=== PATIENT | male | born 1990 | race American Indian/Alaskan Native ===

== ENCOUNTER 2018-05-24 01:59 | Emergency (ER) | payer OTHER ==
[2018-05-24 02:14] VITALS: BP 154/89; PULSE 87; RESP 20; TEMP 98.1; O2SAT 99
--- NOTE | 2018-05-24 02:46 | C.PDOC ---
History Of Present Illness 27 y/o male presents to the ED complaining of low back pain for 2 days. Patient states his bed was broken and he was still sleeping on it. Pt states he has has been feeling the pain since. Pain is radiating into his left groin. Otherwise he denies any fevers, numbness, weakness, incontinence, or UTI symptoms. No blunt trauma or fall. Time Seen by Provider: 05/24/18 02:15 Chief Complaint (Nursing): Back Pain History Per: Patient History/Exam Limitations: no limitations Onset/Duration Of Symptoms: Days (x 2) Current Symptoms Are (Timing): Still Present Associated Symptoms: None Past Medical History Reviewed: Historical Data, Nursing Documentation, Vital Signs Vital Signs: Last Vital Signs Temp 98.1 F 05/24/18 02:14 Pulse 87 05/24/18 02:14 Resp 20 05/24/18 02:14 BP 154/89 H 05/24/18 02:14 Pulse Ox 99 05/24/18 02:14 - Medical History Other PMH: Glaucoma Other Surgeries: Eye surgery Family History: States: Unknown Family Hx - Social History Hx Alcohol Use: Yes Hx Substance Use: Yes - Immunization History Hx Tetanus Toxoid Vaccination: No Hx Influenza Vaccination: No Hx Pneumococcal Vaccination: No Review Of Systems Constitutional: Negative for: Fever Cardiovascular: Negative for: Chest Pain Respiratory: Negative for: Shortness of Breath Gastrointestinal: Negative for: Vomiting, Abdominal Pain Genitourinary: Negative for: Dysuria, Frequency, Incontinence, Hematuria Musculoskeletal: Positive for: Back Pain Neurological: Negative for: Weakness, Numbness, Incoordination Physical Exam - Physical Exam Appears: Non-toxic, No Acute Distress Skin: Warm, Dry Head: Atraumatic, Normacephalic Eye(s): bilateral: Normal Inspection Oral Mucosa: Moist Neck: Normal ROM Chest: Symmetrical Respiratory: No Accessory Muscle Use, Other (no respiratory distress) Back: No Vertebral Tenderness, Paraspinal Tenderness (Left paralumbar tenderness), No Straight Leg Raising Male Genital: Normal Inspection, No Inguinal Tenderness, No Inguinal Swelling, Other (No hernia) Extremity: Bilateral: Atraumatic, Normal Color And Temperature Neurological/Psych: Oriented x3, Normal Speech ED Course And Treatment O2 Sat by Pulse Oximetry: 99 (RA) Pulse Ox Interpretation: Normal Progress Note: Patient treated with 600 mg Motrin PO and 10 mg Flexeril PO. On reevaluation patient is resting comfortably and reports improvement. Plan is to discharge patient home with rx for the same. Advised to follow up with PMD. Disposition Counseled Patient/Family Regarding: Diagnosis, Need For Followup, Rx Given - Disposition Referrals: [facility] [Outside] Disposition: HOME/ ROUTINE Disposition Time: 02:43 Condition: STABLE Additional Instructions: Please follow up with PMD or in clinic Take medications as directed Return to ER if worse Prescriptions: Cyclobenzaprine [Cyclobenzaprine HCl] 10 mg PO HS #10 tab Ibuprofen [Motrin] 600 mg PO Q6H #20 tab Instructions: Lumbar Muscle Strain Forms: [employer] ([place]) - Clinical Impression Clinical Impression: Low back strain - 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 - Scribe Statement The provider has reviewed the documentation as recorded by the Scribyousif Mckeon All medical record entries made by the Joaquinaibyousif were at my direction and personally dictated by me. I have reviewed the chart and agree that the record accurately reflects my personal performance of the history, physical exam, medical decision making, and the department course for this patient. I have also personally directed, reviewed, and agree with the discharge instructions and disposition.
== END 2018-05-24 03:00 | disposition home or self-care (01) ==
LOC: C.ER 01:59
DX: S39.012A Strain of muscle, fascia and tendon of lower back, initial encounter (principal); X58.XXXA Exposure to other specified factors, initial encounter

== ENCOUNTER 2018-05-25 14:57 | Emergency (ER) | payer OTHER ==
[2018-05-25 15:20] VITALS: BP 121/70; TEMP 98.2
[2018-05-25 15:27] VITALS: PULSE 92; RESP 18; O2SAT 100
--- NOTE | 2018-05-25 15:38 | C.PDOC ---
History Of Present Illness 27 y/o male presents to the ED complaining of persistent left back pain radiating into the left groin for 3 days. Pain is intermittent, not associated with position or movement. He was seen here on 05/23, diagnosed with a muscle spasm, and sent home with flexeril and nsaid RX. Saw PMD today for same complaint, patient states urine was taken but does not know results. Patient was given an unknown antibiotic, states he does not know why. Otherwise he denies any nausea, vomiting, fever, or chills. Time Seen by Provider: 05/25/18 15:31 Chief Complaint (Nursing): Back Pain History Per: Patient History/Exam Limitations: no limitations Onset/Duration Of Symptoms: Days Current Symptoms Are (Timing): Still Present Quality Of Discomfort: "Pain" Associated Symptoms: None Past Medical History Reviewed: Historical Data, Nursing Documentation, Vital Signs Vital Signs: Last Vital Signs Temp 98.2 F 05/25/18 15:12 Pulse 92 H 05/25/18 15:26 Resp 18 05/25/18 15:26 BP 121/70 05/25/18 15:12 Pulse Ox 100 05/25/18 15:26 Family History: States: Unknown Family Hx - Social History Hx Tobacco Use: Yes (Former) Hx Alcohol Use: No Hx Substance Use: Yes - Immunization History Hx Tetanus Toxoid Vaccination: No Hx Influenza Vaccination: No Hx Pneumococcal Vaccination: No Review Of Systems Except As Marked, All Systems Reviewed And Found Negative. Constitutional: Negative for: Fever, Chills Gastrointestinal: Negative for: Nausea, Vomiting, Diarrhea Genitourinary: Negative for: Dysuria, Frequency, Hematuria, Penile Discharge Musculoskeletal: Positive for: Back Pain (left back, radiating to left groin). Negative for: Leg Pain Skin: Negative for: Rash, Lesions Neurological: Negative for: Weakness, Numbness Physical Exam - Physical Exam Appears: Non-toxic, No Acute Distress Skin: Normal Color, Warm, Dry Head: Atraumatic, Normacephalic Eye(s): bilateral: Normal Inspection, PERRL, EOMI Oral Mucosa: Moist Neck: Normal ROM Chest: Symmetrical Cardiovascular: Rhythm Regular, No Murmur Respiratory: Normal Breath Sounds, No Accessory Muscle Use, Other (NARD) Gastrointestinal/Abdominal: Soft, No Tenderness, No Distention, No Guarding Back: No CVA Tenderness, No Vertebral Tenderness, No Paraspinal Tenderness Extremity: Bilateral: Atraumatic, Normal Color And Temperature Pulses: Left Dorsalis Pedis: Normal, Right Dorsalis Pedis: Normal Neurological/Psych: Oriented x3, Normal Speech, Other (No focal deficits) ED Course And Treatment O2 Sat by Pulse Oximetry: 100 (RA) Pulse Ox Interpretation: Normal - CT Scan/US CT Abd/Pelvis Other Rad Studies (CT/US): Read By Radiologist, Radiology Report Reviewed CT/US Interpretation: Accession No. : [id number]. Patient Name / ID : ANNA MARIE BELLE / [id number]. Exam Date : 05/25/2018 16:00:54 ( Approved ). Study Comment : Sex / Age : M / 27Y. Creator : Eloisa Jacobs. Dictator : Deirdre De La Cruz MD. Banquet Steward : Controls Engineer : Deirdre De La Cruz MD. Approver2 : Report Date : 05/25/2018 16:13:38. My Comment : . PROCEDURE: CT Abdomen and Pelvis without Oral or IV contrast. HISTORY: L BACK/GROIN PAIN. COMPARISON: None available. TECHNIQUE: Contiguous axial images of the abdomen and pelvis. No oral or IV contrast administered. Coronal and Sagittal reformats generated and reviewed. Radiation dose: Total exam DLP = 986.61 mGy-cm. This CT exam was performed using one or more of the following dose reduction techniques: Automated exposure control, adjustment of the mA and/or kV according to patient size, and/or use of iterative reconstruction technique. FINDINGS: There is limited evaluation of the solid organs without the administration of IV contrast. LOWER THORAX: No visible consolidation, pleural effusion, or pneumothorax. LIVER: Unremarkable unenhanced appearance. GALLBLADDER AND BILE DUCTS: Unremarkable unenhanced appearance. PANCREAS: Unremarkable unenhanced appearance. SPLEEN: 8 mm and 7 mm probable splenules. Otherwise unremarkable. ADRENALS: Unremarkable unenhanced appearance. KIDNEYS AND URETERS: Punctate nonobstructing right renal calculi. Punctate left lower pole renal calculus, nonobstructing. No hydronephrosis or obstructing renal calculus. BLADDER: Decompressed urinary bladder limits evaluation. REPRODUCTIVE: Unremarkable. APPENDIX: The appendix appears within normal limits of caliber. No secondary signs of acute appendicitis. BOWEL: The stomach is nondistended. Lack of oral contrast limits evaluation for bowel pathology. The bowel loops appear within normal limits of caliber without evidence of intestinal obstruction. PERITONEUM: No significant free fluid. No definite free air. LYMPH NODES: Bilateral inguinal lymph nodes, nonspecific. VASCULATURE: No significant atherosclerotic calcifications identified. No aortic aneurysm. BONES: No acute osseous abnormality is detected. OTHER FINDINGS: None. IMPRESSION: Moderate diffuse constipation. Nonobstructing right renal calculi. Punctate nonobstructing left lower pole renal calculus. Thick-walled under distended urinary bladder. Recommend correlation with urinalysis. Additional incidental findings as above. Progress - Data Reviewed Data Reviewed: Lab, Diagnostic imaging, Old records Medical Decision Making Medical Decision Making: Impression: Left back pain, Left groin pain Plan: - Urinalysis - Urine culture - CT Abdomen/Pelvis CT findings discussed with patient. UA is clear. Patient will be discharged home, advised to take meds as prescribed. Disposition Counseled Patient/Family Regarding: Studies Performed, Diagnosis, Need For Followup, Rx Given - Disposition Referrals: YOUR,PMD [Other] Disposition: HOME/ ROUTINE Disposition Time: 16:39 Condition: GOOD Additional Instructions: TAKE MEDICATIONS PRESCRIBED. FOLLOW UP WITH YOUR PMD. Prescriptions: Magnesium Citrate [[facility] Magnesium Citrate] 300 ml PO ONCE #1 bottle Instructions: Constipation, Adult (DC), Low Back Pain (DC) Forms: [employer] ([place]an) - Clinical Impression Clinical Impression: Low back pain, Constipated - Scribe Statement The provider has reviewed the documentation as recorded by the Debi Mckeon Provider Attestation: All medical record entries made by the Debi were at my direction and personally dictated by me. I have reviewed the chart and agree that the record accurately reflects my personal performance of the history, physical exam, medical decision making, and the department course for this patient. I have also personally directed, reviewed, and agree with the discharge instructions and disposition.
[2018-05-25 16:14] LABS: SQUAMOUS EPITHIAL < 1 /hpf (0-5); URINE BILIRUBIN NEGATIVE (NEGATIVE); URINE BLOOD NEGATIVE (NEGATIVE); URINE CLARITY Clear (Clear); URINE COLOR Yellow (YELLOW); URINE GLUCOSE (UA) NORMAL (Normal); URINE LEUKOCYTE ESTERASE NEG Leu/uL (Negative); URINE PROTEIN NEGATIVE (NEGATIVE); URINE UROBILINOGEN NORMAL mg/dL (0.2-1.0)
--- NOTE | 2018-05-25 16:36 | CT ---
PROCEDURE: CT Abdomen and Pelvis without Oral or IV contrast. HISTORY: L BACK/GROIN PAIN COMPARISON: None available. TECHNIQUE: Contiguous axial images of the abdomen and pelvis. No oral or IV contrast administered. Coronal and Sagittal reformats generated and reviewed. Radiation dose: Total exam DLP = 986.61 mGy-cm. This CT exam was performed using one or more of the following dose reduction techniques: Automated exposure control, adjustment of the mA and/or kV according to patient size, and/or use of iterative reconstruction technique. FINDINGS: There is limited evaluation of the solid organs without the administration of IV contrast. LOWER THORAX: No visible consolidation, pleural effusion, or pneumothorax. LIVER: Unremarkable unenhanced appearance. GALLBLADDER AND BILE DUCTS: Unremarkable unenhanced appearance. PANCREAS: Unremarkable unenhanced appearance. SPLEEN: 8 mm and 7 mm probable splenules. Otherwise unremarkable. ADRENALS: Unremarkable unenhanced appearance. KIDNEYS AND URETERS: Punctate nonobstructing right renal calculi. Punctate left lower pole renal calculus, nonobstructing. No hydronephrosis or obstructing renal calculus. BLADDER: Decompressed urinary bladder limits evaluation. REPRODUCTIVE: Unremarkable. APPENDIX: The appendix appears within normal limits of caliber. No secondary signs of acute appendicitis. BOWEL: The stomach is nondistended. Lack of oral contrast limits evaluation for bowel pathology. The bowel loops appear within normal limits of caliber without evidence of intestinal obstruction. PERITONEUM: No significant free fluid. No definite free air. LYMPH NODES: Bilateral inguinal lymph nodes, nonspecific. VASCULATURE: No significant atherosclerotic calcifications identified. No aortic aneurysm. BONES: No acute osseous abnormality is detected. OTHER FINDINGS: None. IMPRESSION: Moderate diffuse constipation. Nonobstructing right renal calculi. Punctate nonobstructing left lower pole renal calculus. Thick-walled under distended urinary bladder. Recommend correlation with urinalysis. Additional incidental findings as above.
== END 2018-05-25 16:50 | disposition home or self-care (01) ==
LOC: C.ER 14:57
DX: K59.00 Constipation, unspecified (principal); M54.5 Low back pain; Z87.891 Personal history of nicotine dependence

== ENCOUNTER 2018-08-10 13:33 | Emergency (ER) | payer OTHER ==
[2018-08-10 14:23] VITALS: PULSE 80; RESP 18; TEMP 98.4; O2SAT 99
--- NOTE | 2018-08-10 15:09 | C.PDOC ---
History Of Present Illness 27 y/o male brought to ER by ambulance for evaluation of panic attack. Patient reports that he had panic attack which has resolved. Patient states that he was smoking marijuana "laced with some substance." He thinks that he might be having " heart attack." Denies having fever,chills, CP,SOB, nausea, vomiting, and abdominal pain. Time Seen by Provider: 08/10/18 15:04 Chief Complaint (Nursing): Substance Abuse History Per: Patient History/Exam Limitations: no limitations Past Medical History Reviewed: Historical Data, Nursing Documentation, Vital Signs Vital Signs: Last Vital Signs Temp 98.4 F 08/10/18 14:19 Pulse 80 08/10/18 14:19 Resp 18 08/10/18 14:19 BP Pulse Ox 99 08/10/18 14:19 - Medical History PMH: No Chronic Diseases Family History: States: No Known Family Hx - Social History Hx Tobacco Use: Yes (Former) Hx Alcohol Use: No Hx Substance Use: Yes (weed) - Immunization History Hx Tetanus Toxoid Vaccination: No Hx Influenza Vaccination: No Hx Pneumococcal Vaccination: No Review Of Systems Except As Marked, All Systems Reviewed And Found Negative. Constitutional: Negative for: Fever, Chills Gastrointestinal: Negative for: Nausea, Vomiting, Abdominal Pain Physical Exam - Physical Exam Appears: Non-toxic, No Acute Distress Skin: Normal Color, Warm, Dry Head: Atraumatic, Normacephalic Eye(s): bilateral: Other (strabismus medially, baseline per pt) Nose: Normal Oral Mucosa: Moist Neck: Supple Chest: Symmetrical Cardiovascular: Rhythm Regular Respiratory: Normal Breath Sounds, No Rales, No Rhonchi, No Wheezing Extremity: Normal ROM Pulses: Left Radial: Normal, Right Radial: Normal Neurological/Psych: Oriented x3, Normal Speech ED Course And Treatment ECG: Interpreted By Me, Viewed By Me ECG Rhythm: Sinus Rhythm Rate From EC O2 Sat by Pulse Oximetry: 99 (RA) Pulse Ox Interpretation: Normal Medical Decision Making Medical Decision Making: marijuana ? laced with PCP, panic attack normal EKG calm, normal exam, reassured. Disposition Doctor Will See Patient In The: Office Counseled Patient/Family Regarding: Studies Performed, Diagnosis - Disposition Referrals: Alcoholics Anonymous [Outside] [facility] [Outside] [facility] [Outside] [facility] [Outside] [facility] [Outside] Disposition: HOME/ ROUTINE Disposition Time: 15:09 Condition: GOOD Additional Instructions: avoid substance abuse - may provoke panic attacks and other mental instabilities Seek Detox and substance abuse programs as an outpatient resources lists given Instructions: Drug Abuse and Drug Addiction (DC), Drug Abuse Treatment Forms: [employer] ([place]) - Clinical Impression Clinical Impression: Drug abuse - Scribe Statement The provider has reviewed the documentation as recorded by the Joaquinaibyousif Nye Provider Attestation: All medical record entries made by the Joaquinaibe were at my direction and personally dictated by me. I have reviewed the chart and agree that the record accurately reflects my personal performance of the history, physical exam, medical decision making, and the department course for this patient. I have also personally directed, reviewed, and agree with the discharge instructions and disposition.
--- NOTE | 2018-08-11 18:24 | CARD ---
APPROVED REPORT Date of service: 08/10/2018 EKG Measurement Heart [id number] <Conclusion> Normal sinus rhythm Normal ECG
== END 2018-08-10 15:19 | disposition home or self-care (01) ==
LOC: C.ER 13:33
DX: F19.10 Other psychoactive substance abuse, uncomplicated (principal)